=== PATIENT | female | born 1965 | race Caucasian/White ===

== ENCOUNTER 2024-06-15 08:59 | Outpatient (CLI) | payer OTHER, SELFPAY ==
--- NOTE | 2024-06-15 09:15 | MR_ITS ---
EXAM: MRI of the RIGHT KNEE, without contrast CLINICAL HISTORY: Ongoing right knee pain. Evaluate for meniscal tear. COMPARISONS: Plain radiographs 06/09/2024. TECHNICAL: MR sequences of the right knee: sagittals: PD, PDFS coronals: PD, STIR axials: PD, T2 FS CONTRAST: None SEDATION: None FINDINGS: Bones: No fracture, bone marrow contusion, or other suspicious bone marrow signal abnormality. Patellofemoral joint: Cartilage: Small 3 x 3 mm area of grade IV chondromalacia over the superior portion of the median patellar ridge with slight subjacent subchondral cystic change in the setting of more diffuse grade II and III chondromalacia over all portions of the patella. Single focus of slitlike full-thickness chondral fissuring over the most inferior portion of the medial femoral trochlea. Retinacula: The medial and lateral retinacula are intact. Fat pads: The infrapatellar, quadriceps, and prefemoral fat pads are unremarkable. Knee joint: Effusion: Trace right knee joint effusion. Popliteal cyst: Small popliteal cyst. Intra-articular bodies: 5 x 3 x 4 mm intra-articular body posterior to the posterior horn/posterior root junction of the medial meniscus best seen on coronal sequences image 23. Posteromedial corner: The semimembranosus and pes anserine tendons are intact. Medial compartment: Medial meniscus: 2-3 mm of medial meniscal extrusion best seen on coronal series 7 image 18 although evaluation is compromised by patient motion artifact. No direct evidence of medial meniscal tear. Cartilage: 6 x 6 mm area of near full-thickness chondral fissuring over the weight-bearing portion of the medial femoral condyle. Lateral compartment: Lateral meniscus: Fraying and mucoid degeneration/ill-defined tearing of the anterior root and anterior horn of the lateral meniscus and slight free edge fraying of the body of the lateral meniscus. Cartilage: 0.9 x 0.4 cm near full-thickness chondral defect over the posterior weightbearing portion of the lateral femoral condyle. 1.5 x 1.5 cm area of grade II to III chondromalacia over the central portion of the lateral tibial plateau. Ligaments: Anterior cruciate ligament: Intact. Posterior cruciate ligament: Intact. Medial collateral ligament: Intact. Posterior oblique ligament: Intact. Fibular collateral ligament: Mucoid degeneration versus ill-defined partial tearing of the proximal portion of the fibular collateral ligament. Posterolateral corner: The distal biceps femoris tendon, iliotibial band, popliteus tendon, popliteus muscle, popliteofibular ligament, and arcuate ligament are intact. Extensor mechanism: Patellar tendon: Intact. Quadriceps tendon: Intact. 2.4 x 2.5 x 2.1 cm ganglion originating from the femoral origin of the medial head gastrocnemius tendon. Smaller ganglion originating from the femoral origin of the lateral head of the gastrocnemius tendon. IMPRESSION: 1. 2-3 mm of medial meniscal extrusion without direct evidence of medial meniscal tear. 2. Fraying and mucoid degeneration/ill-defined tearing of the anterior root and anterior horn of the lateral meniscus and slight free edge fraying of the body of the lateral meniscus. 3. 0.9 x 0.4 cm near full-thickness chondral defect over the posterior weightbearing portion of the lateral femoral condyle. 1.5 x 1.5 cm area of grade II to III chondromalacia over the central portion of the lateral tibial plateau. 4. 6 x 6 mm area of near full-thickness chondral fissuring over the weight- bearing portion of the medial femoral condyle. 5. 3 x 3 mm area of grade IV chondromalacia over the superior portion of the median patellar ridge with slight subjacent subchondral cystic change in the setting of more diffuse grade II and III chondromalacia over all portions of the patella. Single focus of slitlike full-thickness chondral fissuring over the most inferior portion of the medial femoral trochlea. 6. 5 x 3 x 4 mm intra-articular body posterior to the posterior horn/posterior root junction of the medial meniscus. 7. Mucoid degeneration versus ill-defined partial tearing of the proximal portion of the fibular collateral ligament. 8. 2.4 x 2.5 x 2.1 cm ganglion originating from the femoral origin of the medial head gastrocnemius tendon. Smaller ganglion originating from the femoral origin of the lateral head of the gastrocnemius tendon. 9. Trace right knee joint effusion. Small popliteal cyst. RCB Electronically signed on 06/15/2024 11:35:00 AM by David Mariee M.D.
== END 2024-06-15 09:00 | disposition home or self-care (01) ==
PROVIDERS: Visit Provider Orthopaedic Surgery
DX: M25.561 Pain in right knee (principal); S83.281A Other tear of lateral meniscus, current injury, right knee, initial encounter; M22.41 Chondromalacia patellae, right knee; M94.261 Chondromalacia, right knee; S83.401A Sprain of unspecified collateral ligament of right knee, initial encounter; M25.461 Effusion, right knee; S89.91XA Unspecified injury of right lower leg, initial encounter
CPT/HCPCS: 73721